=== PATIENT | female | born 1960 | race Caucasian/White ===

== ENCOUNTER 2016-07-04 00:46 | Inpatient (IN) | payer MEDICAID ==
[~2016-07-04] VITALS: Ht 152.4 cm; Wt 73.8 kg
[2016-07-04 01:28] LABS: Hematocrit 42.8 % (36.0-46.0); Hemoglobin 14.6 g/dL (12.2-16.2); Mean Corpuscular Hemoglobin 29.7 pg (28.0-32.0); Mean Corpuscular Hgb Conc. 34.1 g/dL (32.0-36.0); Mean Corpuscular Volume 87.2 fL (80.0-100.0); Platelet Count (auto) 423 10^3/uL (140-450); Red Cell Distribution Width 14.5 % (11.6-16.0); SUSPECT VIEW TRANSMISSION; White Blood Cell 20.5 10^3/uL (4.4-10.8)
[2016-07-04 01:29] LABS: Metamyelocytes % 0; Myelocytes % 0; Promyelocytes % 0; Reactive Lymphocytes 0
[2016-07-04 01:49] LABS: Albumin 3.2 g/dL (3.4-5.0); BUN/Creatinine Ratio 13.5; Calcium 9.4 mg/dL (8.5-10.1); Potassium 3.7 mmol/L (3.5-5.1)
[2016-07-04 01:56] LABS: Bilirubin, Total 0.5 mg/dL (0.2-1.0); Total Protein 8.3 g/dL (6.4-8.2)
[2016-07-04 02:03] LABS: Platelet Estimate Adequate; RBC Morphology Normal
[2016-07-04] MEDS ORDERED: ONDANSETRON HCL 4 MG/2 ML VIAL IV ONE ×2 (02:45→07:00)
[2016-07-04] MEDS ORDERED: HYDROmorphone HCL 2 MG/ML VL IV ONE ×3 (02:45→07:00)
[2016-07-04] MEDS ORDERED: metroNIDAZOLE 500MG/100ML 100 ML IV ONE (02:45)
[2016-07-04 08:10] LABS: Lactic Acid w/Reflex 2.1 mmol/L (0.4-2.0)
[2016-07-04 08:18] LABS: REFLEX LACTIC ACID YES OR NO YES
[2016-07-04] MEDS ORDERED: DEXTROSE (50%) 50ML SYRG IV PRN (09:00)
[2016-07-04] MEDS ORDERED: LORazepam 0.5 MG TAB PO PRN (09:00)
[2016-07-04] MEDS ORDERED: NITROGLYCERIN 0.4 MG SL TAB SL PRN (09:00)
[2016-07-04] MEDS ORDERED: LACTULOSE 20Gm/30ML SOLN PO PRN (09:00)
[2016-07-04] MEDS ORDERED: cefTRIAXone 1GM/50ML D5W 50 ML IV ONE (09:00)
[2016-07-04] MEDS ORDERED: MORPHINE SULF INJ 2 MG/ML SYRINGE 1ML IV PRN (09:00)
[2016-07-04] MEDS ORDERED: HYDROcodone-ACET 5/325MG TAB PO PRN (09:00)
[2016-07-04] MEDS: cefTRIAXone 1GM/50ML D5W 50 ML IV SCH (09:00)
[2016-07-04] MEDS ORDERED: ACETAMINOPHEN 500 MG TAB PO PRN (09:00)
[2016-07-04 09:42] LABS: INR 0.99 (0.9-1.15); Partial Thromboplastin Time 26.3 sec (22.64-33.71); Prothrombin Time 10.8 sec (9.37-12.3)
[2016-07-04] MEDS: PANTOPRAZOLE 40 MG TAB PO SCH (10:50)
[2016-07-04] MEDS: SODIUM CHLORIDE 0.9% 1,000 ML IV SCH ×2 (10:50→16:56)
[2016-07-04] MEDS: ACCU-CHEK COMFORT CURVE STRIP VI SCH ×2 (12:00→17:44)
[2016-07-04] MEDS: metroNIDAZOLE 500MG/100ML 100 ML IV SCH ×2 (12:00→18:00)
[2016-07-04] MEDS: PROMETHAZINE HCL 25 MG/ML 1ML IV PRN ×3 (13:25→22:48)
[2016-07-04] MEDS: MORPHINE SULF INJ 2 MG/ML SYRINGE 1ML IV PRN ×3 (13:25→22:48)
[2016-07-04 14:10] VITALS: BP 128/80
[2016-07-04] MEDS ORDERED: LISI-646 PO (14:12)
[2016-07-04] MEDS ORDERED: HCTZ25T PO (14:13)
[2016-07-04] MEDS ORDERED: VENL150C PO (14:14)
[2016-07-04] MEDS ORDERED: NOR5T PO (14:15)
[2016-07-04 16:03] VITALS: BP 126/86
[2016-07-04] MEDS: FAMOTIDINE (10MG/ML) 2ML VL IV SCH (21:05)
[2016-07-04 22:07] VITALS: BP 119/74
[2016-07-05] MEDS: metroNIDAZOLE 500MG/100ML 100 ML IV SCH ×4 (00:24→17:29)
[2016-07-05] MEDS: ACCU-CHEK COMFORT CURVE STRIP VI SCH ×4 (00:25→17:35)
[2016-07-05] MEDS: TEMAZEPAM 15 MG CAP PO PRN ×2 (00:40→23:41)
[2016-07-05] MEDS: SODIUM CHLORIDE 0.9% 1,000 ML IV SCH ×2 (00:52→08:52)
[2016-07-05 04:40] LABS: Urine Bilirubin Negative (Negative); Urine Blood 3+ /uL (Negative); Urine Color Brown (Yellow); Urine Glucose Normal (Normal); Urine Ketone Negative (Negative); Urine Mucus FEW (None Seen); Urine Nitrite Negative (Negative); Urine RBC 303 /hpf (0 - 4); Urine Squamous Epithelial Cell FEW /hpf (<5); Urine Urobilinogen Normal (Negative); Urine WBC Clumps PRESENT /hpf (None Seen)
[2016-07-05 04:55] VITALS: BP 134/76
[2016-07-05 05:36] LABS: Basophils # (auto) 0 uL; Basophils % (auto) 0.3 % (0.0-2.0); Eosinophils # (auto) 0 uL; Eosinophils % (auto) 0.1 % (0.0-7.0); Hematocrit 36.1 % (36.0-46.0); Hemoglobin 12.3 g/dL (12.2-16.2); Lymphocytes # (auto) 0.8 uL; Lymphocytes % (auto) 6.9 % (10.0-50.0); Mean Corpuscular Hemoglobin 29.6 pg (28.0-32.0); Mean Corpuscular Hgb Conc. 34.1 g/dL (32.0-36.0); Mean Corpuscular Volume 86.6 fL (80.0-100.0); Monocytes # (auto) 0.7 uL; Monocytes % (auto) 6.4 % (0.0-12.0); Neutrophils # (auto) 9.9 uL; Neutrophils % (auto) 86.3 % (37.0-80.0); Platelet Count (auto) 349 10^3/uL (140-450); Red Cell Distribution Width 14.6 % (11.6-16.0); White Blood Cell 11.5 10^3/uL (4.4-10.8)
[2016-07-05 06:00] LABS: Albumin 2.4 g/dL (3.4-5.0); BUN/Creatinine Ratio 26.7; Calcium 7.9 mg/dL (8.5-10.1)
[2016-07-05 06:03] LABS: Bilirubin, Total 0.4 mg/dL (0.2-1.0); Total Protein 6.6 g/dL (6.4-8.2)
[2016-07-05 08:00] VITALS: BP 126/86
[2016-07-05] MEDS: cefTRIAXone 1GM/50ML D5W 50 ML IV SCH (08:36)
[2016-07-05] MEDS: PROMETHAZINE HCL 25 MG/ML 1ML IV PRN ×4 (08:41→22:19)
[2016-07-05] MEDS: MORPHINE SULF INJ 2 MG/ML SYRINGE 1ML IV PRN ×4 (08:41→22:19)
[2016-07-05 09:00] VITALS: BP 143/86
[2016-07-05] MEDS: PANTOPRAZOLE 40 MG TAB PO SCH (10:04)
[2016-07-05] MEDS: FAMOTIDINE (10MG/ML) 2ML VL IV SCH (10:04)
[2016-07-05 13:00] VITALS: BP 120/87
[2016-07-05] MEDS: D5W/SOD CHL 0.45% 1,000 ML IV SCH ×2 (15:00→23:00)
[2016-07-05 17:00] VITALS: BP 139/91
[2016-07-05 21:50] VITALS: BP 141/93
[2016-07-06 05:00] VITALS: BP 126/78
[2016-07-06] MEDS: ACCU-CHEK COMFORT CURVE STRIP VI SCH ×4 (06:00→17:50)
[2016-07-06] MEDS: metroNIDAZOLE 500MG/100ML 100 ML IV SCH ×4 (06:27→17:50)
[2016-07-06] MEDS: MORPHINE SULF INJ 2 MG/ML SYRINGE 1ML IV PRN ×2 (06:27→20:30)
[2016-07-06] MEDS: PROMETHAZINE HCL 25 MG/ML 1ML IV PRN ×2 (06:28→20:30)
[2016-07-06] MEDS: D5W/SOD CHL 0.45% 1,000 ML IV SCH ×3 (07:03→23:22)
[2016-07-06 09:00] VITALS: BP 125/62
[2016-07-06] MEDS: cefTRIAXone 1GM/50ML D5W 50 ML IV SCH (09:02)
[2016-07-06] MEDS: FAMOTIDINE (10MG/ML) 2ML VL IV SCH (11:41)
[2016-07-06] MEDS: PANTOPRAZOLE 40 MG TAB PO SCH (11:42)
[2016-07-06 13:00] VITALS: BP 141/77
[2016-07-06] MEDS ORDERED: VENLAFAXINE HCL 37.5mg XR cap PO ONE (15:30)
[2016-07-06 17:00] VITALS: BP 132/78
[2016-07-06] MEDS: VENLAFAXINE HCL 37.5MG TABLET PO SCH ×2 (17:06→17:50)
[2016-07-06 22:00] VITALS: BP 142/92
[2016-07-06] MEDS: TEMAZEPAM 15 MG CAP PO PRN (23:24)
[2016-07-07] MEDS: ACCU-CHEK COMFORT CURVE STRIP VI SCH ×2 (00:30→05:40)
[2016-07-07] MEDS: metroNIDAZOLE 500MG/100ML 100 ML IV SCH ×2 (00:30→05:40)
[2016-07-07] MEDS: MORPHINE SULF INJ 2 MG/ML SYRINGE 1ML IV PRN ×3 (00:30→09:00)
[2016-07-07] MEDS: PROMETHAZINE HCL 25 MG/ML 1ML IV PRN ×2 (00:30→05:15)
[2016-07-07 05:00] VITALS: BP 133/80
[2016-07-07] MEDS: cefTRIAXone 1GM/50ML D5W 50 ML IV SCH (08:59)
[2016-07-07 09:00] VITALS: BP 112/87
[2016-07-07] MEDS ORDERED: VENLAFAXINE HCL 37.5mg XR cap PO SCH (10:00)
[2016-07-07] MEDS: PANTOPRAZOLE 40 MG TAB PO SCH (10:36)
[2016-07-07] MEDS: VENLAFAXINE HCL 37.5MG TABLET PO SCH (10:37)
[2016-07-07] MEDS: FAMOTIDINE (10MG/ML) 2ML VL IV SCH (10:42)
[2016-07-07 11:31] VITALS: BP 112/87
[2016-07-07 12:31] VITALS: BP 132/91
== END 2016-07-07 13:00 | disposition home or self-care (01) | DRG 246 ==
LOC: EDBD 00:46 → ER 00:59 → TELE 01:00 → TELE-WESTW 12:17
PROVIDERS: ADMIT Internal Medicine; ATTEND Internal Medicine
DX: K55.9 Vascular disorder of intestine, unspecified (principal); N17.9 Acute kidney failure, unspecified; M48.54XA Collapsed vertebra, not elsewhere classified, thoracic region, initial encounter for fracture; M48.56XA Collapsed vertebra, not elsewhere classified, lumbar region, initial encounter for fracture; K57.92 Diverticulitis of intestine, part unspecified, without perforation or abscess without bleeding; A09 Infectious gastroenteritis and colitis, unspecified; K21.9 Gastro-esophageal reflux disease without esophagitis; E86.0 Dehydration; Z86.73 Personal history of transient ischemic attack (TIA), and cerebral infarction without residual deficits; Z90.710 Acquired absence of both cervix and uterus; Z90.49 Acquired absence of other specified parts of digestive tract; Z71.89 Other specified counseling
CPT/HCPCS: 36415; 70450; 71010; 74176; 80053; 80307; 81001; 82150; 82270; 82378; 82962; 83036; 83605; 83690; 84484; 85007; 85025; 85027; 85610; 85652; 85730; 86141; 86850; 86900; 86901; 87040; 87086; 87493; 93005; 93306; 96365; 96375; 96376; J0696; J2405; J3490

== ENCOUNTER 2020-01-27 21:19 | Inpatient (IN) | payer MEDICAID ==
[~2020-01-27] VITALS: Ht 167.6 cm; Wt 68.0 kg
[~2020-01-27 21:19] MED LIST: HCTZ25T PO; HYDR-4833 PO; LISI-646 PO; VENL150C2 PO
[2020-01-28] MEDS ORDERED: DEXTROSE 50% SYRINGE 50 ML IV ONE ×3 (00:18→18:25)
[2020-01-28 00:22] LABS: Urine Amorphous Crystal MOD /hpf (None Seen); Urine Bacteria MANY /hpf (None Seen); Urine Blood 1+ /uL (Negative); Urine Hyaline Cast FEW /lpf (0 - 2); Urine Specific Gravity 1.016 (1.001-1.035); Urine WBC 48 /hpf (0 - 5); Urine WBC Clumps PRESENT /hpf (None Seen)
[2020-01-28] MEDS ORDERED: DEXTROSE (50%) 50ML SYRG IV ONE ×2 (00:30→06:30)
[2020-01-28 00:53] LABS: Hematocrit 45.2 % (36.0-46.0); Hemoglobin 14.4 g/dL (12.2-16.2); Mean Corpuscular Hemoglobin 30.4 pg (28.0-32.0); Mean Corpuscular Hgb Conc. 31.8 g/dL (32.0-36.0); Mean Corpuscular Volume 95.4 fL (80.0-100.0); Platelet Count (auto) 278 10^3/uL (140-450); Red Blood Cells 4.74 10^6/uL (4.0-5.20); Red Cell Distribution Width 13.7 % (11.8-14.3); White Blood Cell 6.7 10^3/uL (4.4-10.8)
[2020-01-28 01:01] LABS: Basophils % (manual) 0 (0.0-2.0); Blast Cells 0; Eosinophils % (manual) 0 (0-7); Myelocytes % 0; Promyelocytes % 0; Reactive Lymphocytes 0
[2020-01-28 01:08] LABS: Albumin 3.1 g/dL (3.4-5.0); Calcium 8.1 mg/dL (8.5-10.1); Potassium 3.2 mmol/L (3.5-5.1)
[2020-01-28] MEDS ORDERED: SODIUM CHLORIDE 0.9% 1,000 ML IV ONE ×2 (01:15)
[2020-01-28 01:33] LABS: BUN/Creatinine Ratio 19.8; Total Protein 6.4 g/dL (6.4-8.2)
[2020-01-28 01:41] LABS: INR 1.38 (0.9-1.15); Partial Thromboplastin Time 36.7 sec (23.0-31.2)
[2020-01-28 01:45] LABS: Fibrinogen 99 mg/dL (177-375)
[2020-01-28] MEDS ORDERED: HYDROcodone-ACET 7.5/325MG TAB PO ONE (02:00)
[2020-01-28] MEDS ORDERED: PIPERACILLIN-TAZOB 3.375GM 100 ML IV ONE (03:00)
[2020-01-28] MEDS ORDERED: VANCOMYCIN 1GM/250ML 250 ML IV ONE (03:00)
[2020-01-28 03:05] LABS: Lactic Acid w/Reflex 8.3 mmol/L (0.4-2.0)
[2020-01-28 03:24] LABS: Lactic Acid w/Reflex 10.2 mmol/L (0.4-2.0)
[2020-01-28] MEDS ORDERED: LIDOCAINE 1% HCL (LOCAL ANESTH.) INJ 20ML MDV IJ ONE (04:00)
[2020-01-28] MEDS ORDERED: ONDANSETRON HCL 4 MG/2 ML VIAL IV PRN (05:30)
[2020-01-28] MEDS ORDERED: ACETAMINOPHEN 325 MG TAB PO PRN (05:30)
[2020-01-28] MEDS ORDERED: MORPHINE SULF INJ 2 MG/ML SYRINGE 1ML IV PRN (05:30)
[2020-01-28] MEDS ORDERED: NITROGLYCERIN 0.4 MG SL TAB SL PRN (05:30)
[2020-01-28] MEDS ORDERED: VANCOMYCIN PER PHARMACY 0 MG IV SCH (05:30)
[2020-01-28] MEDS ORDERED: NOREPINEPHRINE 8 MG/250ML KIT 250 ML IV ONE (05:46)
[2020-01-28] MEDS ORDERED: LORazepam 2MG/ML-1ML VIAL ONE (05:58)
[2020-01-28] MEDS ORDERED: LORazepam 2MG/ML-1ML VIAL IV ONE (06:00)
[2020-01-28 06:01] LABS: Band Neutrophils % (manual) 16; Lymphocytes % (manual) 18 (10.0-50.0); Metamyelocytes % 2; Monocytes % (manual) 4 (0-12)
[2020-01-28] MEDS: SODIUM CHLORIDE 0.9% 1,000 ML IV SCH ×2 (06:01→17:30)
[2020-01-28] MEDS: NOREPINEPHRINE 8 MG/250ML KIT 250 ML IV SCH (06:02)
[2020-01-28] MEDS: PIPERACILLIN-TAZOB 2.25GM 50 ML IV SCH ×4 (06:02→23:52)
[2020-01-28] MEDS ORDERED: PHENYLEPHRINE IV 250 ML IV ONE (06:26)
[2020-01-28] MEDS ORDERED: DEXTROSE 10% 1,000 ML IV ONE (06:29)
[2020-01-28] MEDS ORDERED: SODIUM BICARBONATE 50ML VIAL 50 ML in SOD CHL 0.45% 1,000 ML IV SCH (06:30)
[2020-01-28] MEDS ORDERED: SODIUM BICARBONATE 8.4% INJ 50ML SYRINGE ONE (06:30)
[2020-01-28] MEDS ORDERED: SODIUM BICARBONATE 8.4 % INJ 50ML VIAL IV ONE ×2 (06:30→11:30)
[2020-01-28] MEDS ORDERED: ETOMIDATE (2MG/ML) 20ML VIAL IV ONE ×2 (06:40→06:45)
[2020-01-28] MEDS ORDERED: SUCCINYLCHOLINE CHLORIDE 20 MG/ML 10ML VIAL IV ONE ×2 (06:41→06:45)
[2020-01-28] MEDS ORDERED: MIDAZOLAM DRIP 50 mg/50mL 50 ML IV ONE (06:49)
[2020-01-28] MEDS ORDERED: MIDAZOLAM DRIP 50 mg/50mL 50 ML IV SCH (07:15)
[2020-01-28] MEDS: DEXTROSE 10% 1,000 ML IV SCH (07:16)
[2020-01-28] MEDS: PHENYLEPHRINE IV 250 ML IV SCH ×3 (07:17→23:40)
[2020-01-28] MEDS ORDERED: PANTOPRAZOLE 40 MG TAB PO SCH (10:00)
[2020-01-28] MEDS ORDERED: VASOPRESSIN 50 UNITS in D5W 5% 247.5 ML IV SCH (11:30)
--- NOTE | 2020-01-28 14:05 | NUR ---
PT eval orders received. Pt is currently on vent with FIO2 100% and pt has a MAP or 43. Pt is not appropriate for any mobility at this time. Will reassess for appropriateness tomorrow.
[2020-01-28 19:20] VITALS: BP 82/53
[2020-01-29] MEDS ORDERED: VASOPRESSIN 20 UNIT/ML ONE ×2 (00:41→00:42)
[2020-01-29] MEDS ORDERED: VASOPRESSIN 50 UNITS in D5W 5% 247.5 ML IV SCH (00:45)
[2020-01-29 01:20] VITALS: BP 122/78
[2020-01-29] MEDS ORDERED: EPINEPHrine HCL 250 ML IV ONE (01:55)
[2020-01-29] MEDS ORDERED: EPINEPHrine HCL 250 ML IV SCH (02:00)
[2020-01-29] MEDS: DEXTROSE 10% 1,000 ML IV SCH (02:17)
[2020-01-29] MEDS: NOREPINEPHRINE 8 MG/250ML KIT 250 ML IV SCH (04:36)
[2020-01-29] MEDS: SODIUM CHLORIDE 0.9% 1,000 ML IV SCH (04:36)
[2020-01-29] MEDS: PIPERACILLIN-TAZOB 2.25GM 50 ML IV SCH (05:57)
[2020-01-29 08:45] VITALS: BP 114/66
[2020-01-29 08:55] LABS: Hemoglobin 7.7 g/dL (12.2-16.2); Red Blood Cells 2.45 10^6/uL (4.0-5.20)
[2020-01-29 08:56] LABS: Hematocrit 25.3 % (36.0-46.0); Mean Corpuscular Hemoglobin 31.3 pg (28.0-32.0); Mean Corpuscular Hgb Conc. 30.3 g/dL (32.0-36.0); Mean Corpuscular Volume 103.3 fL (80.0-100.0); Platelet Count (auto) 100 10^3/uL (140-450); Red Cell Distribution Width 15.5 % (11.8-14.3); White Blood Cell 4.7 10^3/uL (4.4-10.8)
[2020-01-29 08:58] LABS: Albumin 1.3 g/dL (3.4-5.0)
[2020-01-29 09:14] LABS: Bilirubin, Total 2.8 mg/dL (0.2-1.0); Total Protein 3.2 g/dL (6.4-8.2)
[2020-01-29 09:15] LABS: Basophils % (manual) 0 (0.0-2.0); Blast Cells 0; Eosinophils % (manual) 0 (0-7); Reactive Lymphocytes 0
[2020-01-29 09:20] LABS: Calcium 5.5 mg/dL (8.5-10.1); Potassium 6.7 mmol/L (3.5-5.1)
[2020-01-29 09:30] VITALS: BP 144/76
[2020-01-29] MEDS ORDERED: PANTOPRAZOLE 40 MG/10 ML VIAL INJ IV SCH (10:00)
[2020-01-29 12:30] LABS: Band Neutrophils % (manual) 10; Lymphocytes % (manual) 21 (10.0-50.0); Metamyelocytes % 19; Monocytes % (manual) 5 (0-12); Myelocytes % 27; Promyelocytes % 2
[2020-01-29] MEDS ORDERED: EPINEPHrine HCL 1 MG/10 ML SYRG IV ONE (12:38)
[2020-01-29] MEDS ORDERED: VANCOMYCIN 1GM/250ML 250 ML IV ONE (13:00)
== END 2020-01-29 09:31 | DRG 720 ==
LOC: EDBD 21:19 → ER 21:21 → TELE 21:22
PROVIDERS: ADMIT Nurse Practitioner; ATTEND Internal Medicine
PROC: 5A1935Z Respiratory Ventilation, Less than 24 Consecutive Hours (ICD-10-PCS; 2020-01-28)
PROC: 0BH17EZ Insertion of Endotracheal Airway into Trachea, Via Natural or Artificial Opening (ICD-10-PCS; 2020-01-28)
PROC: 5A12012 Performance of Cardiac Output, Single, Manual (ICD-10-PCS; principal; 2020-01-29)
DX: A41.9 Sepsis, unspecified organism (principal); J96.00 Acute respiratory failure, unspecified whether with hypoxia or hypercapnia; I21.4 Non-ST elevation (NSTEMI) myocardial infarction; N17.0 Acute kidney failure with tubular necrosis; K52.9 Noninfective gastroenteritis and colitis, unspecified; E16.2 Hypoglycemia, unspecified; D64.9 Anemia, unspecified; R65.20 Severe sepsis without septic shock; G92 Toxic encephalopathy; J18.9 Pneumonia, unspecified organism; R55 Syncope and collapse; I10 Essential (primary) hypertension; K72.90 Hepatic failure, unspecified without coma; R65.21 Severe sepsis with septic shock; Z20.828 Contact with and (suspected) exposure to other viral communicable diseases; K21.9 Gastro-esophageal reflux disease without esophagitis; R29.6 Repeated falls; Z91.81 History of falling; Z90.710 Acquired absence of both cervix and uterus; Z21 Asymptomatic human immunodeficiency virus [HIV] infection status
CPT/HCPCS: 36415; 36600; 70450; 71045; 71250; 72125; 74176; 80053; 80202; 80320; 81001; 82553; 82805; 82962; 83605; 83880; 84443; 84484; 85007; 85027; 85379; 85384; 85610; 85730; 87040; 87070; 87086; 87088; 87186; 87205; 87426; 94002; 94003; 99291; C9113; G0378; J0171; J0330; J2001; J2250; J2543; J7060